=== PATIENT | female | born 1980 | race Hispanic/Latino ===

== ENCOUNTER 2019-12-23 08:23 | Emergency (ER) | payer BC ==
[2019-12-23] MEDS ORDERED: AZITHROMYCIN 250 MG TABLET PO ONE (09:34)
== END 2019-12-23 12:24 | disposition home or self-care (01) ==
LOC: EDH 08:23
DX: U07.1 COVID-19 (principal); J12.89 Other viral pneumonia; J01.10 Acute frontal sinusitis, unspecified; Z72.0 Tobacco use
CPT/HCPCS: 71045; 87426; 87804